=== PATIENT | female | born 2000 | race Caucasian/White ===

== ENCOUNTER 2021-07-30 13:46 | Inpatient (IN) | payer BC, MEDICAID ==
[~2021-07-30] VITALS: Ht 160 cm; Wt 97.5 kg
[2021-07-30] MEDS ORDERED: FAMOTIDINE 20MG/2ML VIAL IV STA (17:03)
[2021-07-30] MEDS ORDERED: METOCLOPRAMIDE HCL 10MG/2ML VIAL IV ONE (17:15)
[2021-07-30] MEDS ORDERED: SODIUM CHLORIDE 0.9% 1,000 ML IV ONE (17:15)
[2021-07-30 18:22] LABS: BASOPHILS % 0.3 % (0.0-2.0); HEMATOCRIT. 38.3 % (36.0-48.0); HEMOGLOBIN. 12.8 g/dL (12.0-16.0); LYMPHOCYTES % 19.5 % (20.0-50.0); MEAN CORPUSCULAR HEMOGLOBIN 30.9 pg (28.0-32.0); MEAN CORPUSCULAR VOLUME 92.4 fL (81.0-99.0); MEAN PLATELET VOLUME 9.3 fl (7.4-10.4); MONOCYTES % 3.6 % (2.0-8.0); NEUTROPHILS % 75.6 % (40.0-76.0); PLATELET 231 x1000/uL (130-400); RED BLOOD CELL COUNT 4.14 mill/uL (4.2-5.4); RED CELL DISTRIBUTION WIDTH 13.1 % (11.6-14.6)
[2021-07-30 18:29] LABS: CHLORIDE 105 mEq/L (98-107)
[2021-07-30] MEDS ORDERED: PYRIDOXINE HCL 50MG TABLET PO ONE (18:30)
[2021-07-30 18:32] LABS: PROTHROMBIN TIME 10.7 sec (9.6-11.0)
[2021-07-30 18:41] LABS: CLARITY URINE CLOUDY (CLEAR); COLOR URINE DARK YELLOW (YELLOW); KETONES URINE 1+ (NEGATIVE); LEUKOCYTE ESTERASE URINE 1+ (NEGATIVE); NITRITE URINE NEGATIVE (NEGATIVE); OCCULT BLOOD URINE NEGATIVE (NEGATIVE); PROTEIN URINE 1+ (NEGATIVE); SPECIFIC GRAVITY URINE 1.029 (1.005-1.030)
[2021-07-30] MEDS ORDERED: NITROFURANTOIN 100MG M/M CAPSULE PO NR (19:00)
[2021-07-30] MEDS ORDERED: ONDANSETRON HCL 4MG/2ML INJ IV ONE (21:00)
[2021-07-30] MEDS ORDERED: DEXT 5%/0.9% NACL 1,000 ML IV ONE (21:45)
[2021-07-31 04:10] VITALS: BP 110/56
[2021-07-31] MEDS ORDERED: METO-293 PO (04:43)
[2021-07-31] MEDS ORDERED: PNV1TABL76 PO (04:43)
[2021-07-31] MEDS ORDERED: METO-293 MT (10:41)
[2021-07-31] MEDS ORDERED: ONDA4TAB5 MT (10:41)
== END 2021-07-31 06:01 | disposition home or self-care (01) | DRG 833 ==
LOC: ER 13:46 → MICUSO 23:58 → EDBEDREQ 07-31 00:15 → EDBEDREQTM 07-31 00:15 → ENRESERV 07-31 02:34 → 6EST 07-31 03:16
PROVIDERS: ADMIT Internal Medicine; ATTEND Internal Medicine
DX: O21.0 Mild hyperemesis gravidarum (principal); Z3A.13 13 weeks gestation of pregnancy
CPT/HCPCS: 36415; 80053; 81003; 85025; 99285; J2405; J2765; J3490; J7030; J7042

== ENCOUNTER 2021-07-31 06:04 | Emergency (ER) | payer BC, MEDICAID ==
[~2021-07-31] VITALS: Ht 160 cm; Wt 100.0 kg
[~2021-07-31 06:04] MED LIST: METO-293 PO; PNV1TABL76 PO
[2021-07-31] MEDS ORDERED: ONDANSETRON HCL 4MG/2ML INJ IV ONE (06:30)
[2021-07-31 09:02] LABS: CHLORIDE 110 mEq/L (98-107)
[2021-07-31] MEDS ORDERED: METO-293 MT (10:41)
[2021-07-31] MEDS ORDERED: ONDA4TAB5 MT (10:41)
[2021-07-31 12:17] VITALS: BP 99/72
== END 2021-07-31 12:18 | disposition home or self-care (01) ==
LOC: ER 06:04
DX: O21.0 Mild hyperemesis gravidarum (principal); Z3A.12 12 weeks gestation of pregnancy
CPT/HCPCS: 36415; 76801; 80053; 84702; 96374; 99284; J2405